=== PATIENT | female | born 1950 | race Caucasian/White ===

== ENCOUNTER → 2019-11-13 | Outpatient (CLI) | payer MEDICARE, MEDICAID | LOC: RAD 08:49 | PROVIDERS: ATTEND Internal Medicine Geriatric Medicine | DX: C50.912 Malignant neoplasm of unspecified site of left female breast (principal) | CPT/HCPCS: 82565; A9576; C8908; 77049 ==

== ENCOUNTER → 2019-12-09 | Outpatient (CLI) | payer MEDICARE, MEDICAID ==
--- NOTE | 2019-12-09 15:25 | WOMENS IMAGING REPORT ---
EXAM DESCRIPTION: 3D DX MAMMO BILAT; U/S BREAST UNILAT LIMITED COMPLETED DATE/TIME: 12/09/2019 9:33 am; 12/09/2019 10:07 am REASON FOR STUDY: C50.919 MALIGNANT NEOPLASM OF UNSPECIFIED SITE OF UNSPECIFIED FEMALE BREAST; N63.1 0 RIGHT BREAST C50.919 MALIGNANT NEOPLASM OF UNSP SITE OF UNSPECIFIED FEMAL N63.10 UNSPECIFIED LUMP IN THE RIGHT BREAST, UNSPECIFIED DAT. Previous history of left breast cancer status post lumpectomy , status post radiation. Physician detected a lump in the right breast. Patient underwent MRI at [facility]. COMPARISON: MRI bilateral breasts, 12/09/2019. EXAM PARAMETERS: Standard craniocaudal and mediolateral oblique views of each breast recorded using digital acquisition and breast tomosynthesis. Read with the assistance of CAD: .[facility] - [employer] Version 9.2 LIMITATIONS: None. FINDINGS: RIGHT BREAST MASSES: In the upper outer right breast approximately 10 o'clock position, measuring up to 7 mm. CALCIFICATIONS: Multiple cores and benign calcifications in the right breast. ARCHITECTURAL DISTORTION: None. ASYMMETRY: None noted. OTHER: Biopsy markers in the central right breast. LEFT BREAST MASSES: No suspicious masses. CALCIFICATIONS: Scattered benign calcifications throughout the breast tissue. ARCHITECTURAL DISTORTION: Post treatment changes in the left upper outer breast consistent with prior lumpectomy and radiation therapy. ASYMMETRY: None noted. OTHER: Biopsy marker in the central left breast. The patient was taken ultrasound for further evaluation of the 2 right breast masses in the upper out er quadrant breast. The right breast was scanned by the sonographic technologist. In the subareolar region, there is a 7 mm hypoechoic nodule with well-circumscribed margins likely representing benign oil cyst or fat necr osis. This corresponds to the larger lesion seen on mammogram. At the 10-11 o'clock position 6- 8 c m from the nipple there is a benign appearing cyst. Additional subareolar hypoechoic nodule measurin g 0.4 cm at the 12 o'clock position has similar characteristics to the previously described probable will cyst. No other solid or cystic mass. No area of echogenic shadowing. No skin thickening or ot her abnormality. IMPRESSION: Several hypoechoic nodules in the subareolar region of the right breast correspond with the masses seen on mammogram. These have a well-circumscribed appearance with findings suggestive of oil cysts. A six-month follow-up right breast mammogram and ultrasound are recommended. BREAST DENSITY: b. There are scattered areas of fibroglandular density. BIRAD: ASSESSMENT: 3 Probably benign finding. Initial short-interval follow-up suggested. RECOMMENDATION: RECOMMENDED FOLLOW UP: Birads 3: The patient will return in 6 months for follow-up i maging. SPECIFIC INTERVENTION/IMAGING/CONSULTATION RECOMMENDED:The patient will return for 6 month follow-up diagnostic mammography(tomosynthesis) and targeted breast ultrasound. COMMUNICATION:The imaging findings were not discussed with the patient. Her referring provider has be en notified of the findings. COMMENT: The patient has been notified of the results by letter per [place] requirements. Additional no tification policies are in place for contacting patient with suspicious or incomplete findings. Quality ID #[id number]: The [employer] recommends an annual screening mammogram for women aged 40 years or over. This facility utilizes a reminder system to ensure that all patients receive reminder letters, and/or direct phone calls for appointments. This includes reminders for routine scr eening mammograms, diagnostic mammograms, or other Breast Imaging Interventions when appropriate. Th is patient will be placed in the appropriate reminder system. TECHNICAL DOCUMENTATION: FINDING NUMBER: (1) ASSESSMENT: (1) JOB ID: [id number] 2010 [employer]- All Rights Reserved Reading location - IP/workstation name: [email or web address]
== END ==
LOC: WI 09:55
PROVIDERS: ATTEND Internal Medicine Geriatric Medicine
DX: N63.11 Unspecified lump in the right breast, upper outer quadrant (principal)
CPT/HCPCS: 76642; 77066; G0279; 77062